=== PATIENT | male | born 1945 | race Asian ===

== ENCOUNTER 2017-11-06 15:16 | Emergency (ER) | payer SELFPAY ==
[~2017-11-06] VITALS: Ht 170.2 cm; Wt 79.5 kg
[2017-11-06] MEDS ORDERED: KETOROLAC TROMETHAMINE 30 MG/ML VIAL IM ONE (18:00)
[2017-11-06 19:52] VITALS: BP 173/85
== END 2017-11-06 20:22 | disposition home or self-care (01) ==
LOC: EMS 15:17
DX: M17.0 Bilateral primary osteoarthritis of knee (principal); M71.21 Synovial cyst of popliteal space [Baker], right knee
CPT/HCPCS: 73562 ×2; 93970; 96372; 99284; J1885

== ENCOUNTER 2018-03-01 11:54 | Emergency (ER) | payer MEDICAID, OTHER ==
[~2018-03-01] VITALS: Ht 170.2 cm; Wt 72.7 kg
[2018-03-01] MEDS ORDERED: ATOR10TA84 PO (12:10)
[2018-03-01 13:16] VITALS: BP 182/99
== END 2018-03-01 13:35 | disposition home or self-care (01) ==
LOC: EMS 11:55
DX: M77.9 Enthesopathy, unspecified (principal); I10 Essential (primary) hypertension; E78.00 Pure hypercholesterolemia, unspecified

== ENCOUNTER 2018-07-22 08:03 | Inpatient (IN) | payer OTHER ==
[2018-07-15 14:16] LABS: BASOPHILS % (AUTO) 0.5 % (0.0-2.0); EOSINOPHILS % (AUTO) 4.8 % (1.0-6.0); HEMATOCRIT 44.6 % (41-53); LYMPHOCYTES # (AUTO) 1.5 K/uL (1.0-4.8); LYMPHOCYTES % (AUTO) 20.4 % (22.0-44.0); MEAN CORPUSCULAR HGB CONC 33.6 G/dL (31.0-37.0); MEAN CORPUSCULAR VOLUME 92 fL (80-100); MONOCYTES # (AUTO) 0.5 K/uL (0.1-1.0); MONOCYTES % (AUTO) 6.7 % (2.0-9.0); NEUTROPHILS # (AUTO) 5.1 K/uL (1.8-7.7); NEUTROPHILS % (AUTO) 67.6 % (40.0-70.0); PLATELET COUNT (AUTO) 226 K/uL (150-450); RED BLOOD CELL COUNT(AUTO) 4.84 MIL/uL (4.50-5.90); RED CELL DISTRIBUTION WIDTH 12.8 % (11.5-14.5)
[2018-07-15 14:28] LABS: PROTHROMBIN TIME 10.2 SEC (9.4-11.6)
[2018-07-15 14:40] LABS: CALCIUM, TOTAL 9.8 mg/dL (8.8-10.5); CREATININE 1.5 mg/dL (0.60-1.30); POTASSIUM 4.8 mmol/L (3.5-5.1)
[2018-07-15 14:46] LABS: ALBUMIN 4.2 g/dL (3.4-5.0); BILIRUBIN,TOTAL 1.5 mg/dL (0.1-1.0); TOTAL PROTEIN, SERUM 7.7 g/dL (6.4-8.2)
[~2018-07-22] VITALS: Ht 170.2 cm; Wt 90.4 kg
[~2018-07-22 08:03] MED LIST: ACETAMINOPHEN 1000 MG/ISO-OSM 100 ML IV ONE; AMLO-511 PO; ATOR40TA28 PO; BUPIVACAINE LIPOSOME/PF 1.3%-13.3MG/ML SUSPENSION 20 ML VIAL INJ ONE; CELE100 PO; LOSA50TA64 PO
[2018-07-22] MEDS ORDERED: SODIUM CHLORIDE 0.9% 1,000 ML IV ONE (08:15)
[2018-07-22] MEDS ORDERED: SODIUM CHLORIDE 0.9% 100 ML ONE (09:25)
[2018-07-22] MEDS ORDERED: SODIUM CHLORIDE 0.9% 10 ML ONE (09:25)
[2018-07-22] MEDS ORDERED: BACITRACIN 50,000 UNITS/VIAL ONE (09:26)
[2018-07-22] MEDS ORDERED: SODIUM CL IRRIG SOLN BAG 3,000 ML IRRIG ONE (09:26)
[2018-07-22] MEDS ORDERED: TRANEXAMIC ACID 1,000 MG in DEXTROSE 5%-WATER 50 ML IV ONE (09:45)
[2018-07-22] MEDS ORDERED: RINGERS SOLUTION,LACTATED 1,000 ML IV ONE ×2 (10:30→11:04)
[2018-07-22] MEDS ORDERED: ZOLPIDEM TARTRATE 10 MG TABLET PO PRN (12:15)
[2018-07-22] MEDS ORDERED: BENZOCAINE/MENTHOL LOZENGE PO PRN (12:15)
[2018-07-22] MEDS ORDERED: BACITRACIN 28.4 GM OINTMENT TP PRN (12:15)
[2018-07-22] MEDS ORDERED: MAG HYDROX/AL HYDROX/SIMETH 30 ML SUSP UDCUP PO PRN (12:15)
[2018-07-22] MEDS ORDERED: BISACODYL 10 MG RECTAL RECTAL SUPPOSITORY PR PRN (12:15)
[2018-07-22] MEDS ORDERED: DiphenhydrAMINE HCL 50 MG/ML VIAL IVP PRN (12:15)
[2018-07-22] MEDS ORDERED: ONDANSETRON HCL 4 MG/2 ML VIAL IVP PRN ×3 (12:15→22:15)
[2018-07-22] MEDS ORDERED: FentaNYL CITRATE-PF 100 MCG/2 ML VIAL IVP PRN (13:00)
[2018-07-22] MEDS ORDERED: MEPERIDINE-PF 25 MG/ML VIAL IVP PRN (13:00)
[2018-07-22] MEDS ORDERED: HYDROmorphone 2 MG/ML SYRINGE IVP PRN ×2 (13:00)
[2018-07-22] MEDS ORDERED: CYCLOBENZAPRINE HCL 10 MG TABLET PO PRN (13:00)
[2018-07-22] MEDS ORDERED: ZOLPIDEM TARTRATE 5 MG TABLET PO PRN ×2 (13:00→22:15)
[2018-07-22 13:39] VITALS: BP 134/72
[2018-07-22] MEDS: DEXTROSE 5%-LACTATED RINGERS 1,000 ML IV SCH (14:33)
[2018-07-22 16:03] VITALS: BP 131/77
[2018-07-22] MEDS: ACETAMINOPHEN 1000 MG/ISO-OSM 100 ML IV SCH ×2 (17:00→23:23)
[2018-07-22 20:04] VITALS: BP 118/78
[2018-07-22] MEDS: FAMOTIDINE 20 MG TABLET PO SCH (20:15)
[2018-07-22] MEDS: DOCUSATE SODIUM 100 MG CAPSULE PO SCH (20:15)
[2018-07-22] MEDS: CeFAZolin 1 GM/DEXTROSE 50 ML IV SCH (20:15)
[2018-07-22] MEDS: OxyCODONE HCL 5 MG IR TABLET PO PRN (20:15)
[2018-07-22] MEDS ORDERED: ACETAMINOPHEN 325 MG TABLET PO PRN (22:15)
[2018-07-22 23:47] VITALS: BP 123/72
[2018-07-23] MEDS: CeFAZolin 1 GM/DEXTROSE 50 ML IV SCH (03:16)
[2018-07-23] MEDS: DEXTROSE 5%-LACTATED RINGERS 1,000 ML IV SCH ×2 (04:53→20:00)
[2018-07-23] MEDS: ACETAMINOPHEN 1000 MG/ISO-OSM 100 ML IV SCH ×2 (04:54→11:22)
[2018-07-23 05:14] VITALS: BP 139/67
[2018-07-23] MEDS ORDERED: MIDAZOLAM HCL 2 MG/2 ML VIAL IVP ONE (05:58)
[2018-07-23] MEDS ORDERED: KETAMINE HCL 50 MG/ML 10 ML VIAL IVP ONE (05:58)
[2018-07-23] MEDS ORDERED: FentaNYL CITRATE-PF 100 MCG/2 ML VIAL IVP ONE (05:58)
[2018-07-23] MEDS ORDERED: EPHEDrine SULFATE 50 MG/ML VIAL IM ONE (06:15)
[2018-07-23] MEDS ORDERED: PROPOFOL 1% 20 ML VIAL IVP ONE (06:15)
[2018-07-23] MEDS ORDERED: DEXAMETHASONE SOD PHOS 4 MG/ML VIAL IVP ONE (06:15)
[2018-07-23] MEDS ORDERED: GLYCOPYRROLATE 0.2 MG/ML VIAL IM ONE (06:15)
[2018-07-23] MEDS ORDERED: ROCURONIUM BROMIDE 10 MG/ML 5 ML VIAL IVP ONE (06:15)
[2018-07-23] MEDS ORDERED: ONDANSETRON HCL 4 MG/2 ML VIAL IVP ONE (06:15)
[2018-07-23] MEDS ORDERED: LIDOCAINE/PF 2% 5 ML VIAL IM ONE (06:15)
[2018-07-23] MEDS: OXYGEN THERAPY IH SCH ×2 (08:00→09:01)
[2018-07-23 08:54] VITALS: BP 112/64
[2018-07-23] MEDS: DOCUSATE SODIUM 100 MG CAPSULE PO SCH ×2 (08:55→20:12)
[2018-07-23] MEDS: PANTOPRAZOLE SODIUM 40 MG/VIAL IVP SCH (08:55)
[2018-07-23] MEDS: OxyCODONE HCL 5 MG IR TABLET PO PRN (08:56)
[2018-07-23] MEDS: FAMOTIDINE 20 MG TABLET PO SCH ×2 (08:56→20:12)
[2018-07-23] MEDS: AmLODIPine BESYLATE 5 MG TABLET PO SCH (08:56)
[2018-07-23] MEDS: ATORVASTATIN CALCIUM 40 MG TABLET PO SCH (08:56)
[2018-07-23 10:54] VITALS: BP 133/72
[2018-07-23] MEDS: LOSARTAN POTASSIUM 50 MG TABLET PO SCH (10:54)
[2018-07-23] MEDS ORDERED: RIVAROXABAN 10 MG TABLET PO SCH (11:00)
[2018-07-23 11:11] VITALS: BP 115/59
[2018-07-23 15:58] VITALS: BP 112/70
[2018-07-23] MEDS: RIVAROXABAN 10 MG TABLET PO SCH (17:32)
[2018-07-23 20:00] VITALS: BP 136/79
[2018-07-24 00:06] VITALS: BP 127/84
[2018-07-24 04:00] VITALS: BP 139/70
[2018-07-24] MEDS: OxyCODONE HCL/ACETAMINOPHEN 10-325 MG TABLET PO PRN ×2 (05:50→10:11)
[2018-07-24 07:21] VITALS: BP 135/69
[2018-07-24] MEDS: OXYGEN THERAPY IH SCH ×2 (08:00→20:00)
[2018-07-24] MEDS: ATORVASTATIN CALCIUM 40 MG TABLET PO SCH (08:31)
[2018-07-24] MEDS: LOSARTAN POTASSIUM 50 MG TABLET PO SCH (08:31)
[2018-07-24] MEDS: FAMOTIDINE 20 MG TABLET PO SCH ×2 (08:31→20:20)
[2018-07-24] MEDS: PANTOPRAZOLE SODIUM 40 MG/VIAL IVP SCH (08:31)
[2018-07-24] MEDS: DOCUSATE SODIUM 100 MG CAPSULE PO SCH ×2 (08:31→20:20)
[2018-07-24] MEDS: AmLODIPine BESYLATE 5 MG TABLET PO SCH (08:31)
[2018-07-24 11:03] LABS: BASOPHILS % (AUTO) 0.5 % (0.0-2.0); EOSINOPHILS % (AUTO) 0.4 % (1.0-6.0); HEMOGLOBIN 11.2 g/dL (13.5-17.5); LYMPHOCYTES # (AUTO) 1.4 K/uL (1.0-4.8); LYMPHOCYTES % (AUTO) 12.6 % (22.0-44.0); MEAN CORPUSCULAR HEMOGLOBIN 31.1 pg (26.0-34.0); MEAN CORPUSCULAR HGB CONC 33.8 G/dL (31.0-37.0); MEAN CORPUSCULAR VOLUME 92 fL (80-100); MONOCYTES # (AUTO) 1.2 K/uL (0.1-1.0); MONOCYTES % (AUTO) 11.5 % (2.0-9.0); PLATELET COUNT (AUTO) 165 K/uL (150-450); RED BLOOD CELL COUNT(AUTO) 3.59 MIL/uL (4.50-5.90); RED CELL DISTRIBUTION WIDTH 12.7 % (11.5-14.5)
[2018-07-24 11:31] VITALS: BP 132/70
[2018-07-24 15:30] VITALS: BP 106/68
[2018-07-24] MEDS: RIVAROXABAN 10 MG TABLET PO SCH (17:52)
[2018-07-24 17:54] LABS: CREATININE 1.57 mg/dL (0.60-1.30); POTASSIUM 3.9 mmol/L (3.5-5.1)
[2018-07-24 17:59] LABS: ALBUMIN 2.8 g/dL (3.4-5.0); BILIRUBIN,TOTAL 1.3 mg/dL (0.1-1.0); TOTAL PROTEIN, SERUM 6.1 g/dL (6.4-8.2)
[2018-07-24 18:17] LABS: APPEARANCE,URINE CLEAR (CLEAR); BILIRUBIN,URINE NEGATIVE (NEGATIVE); GLUCOSE, URINE (UA) NEGATIVE (NEGATIVE); KETONES,URINE NEGATIVE (NEGATIVE); LEUKOCYTE ESTERASE ,URINE NEGATIVE (NEGATIVE); NITRATE,URINE NEGATIVE (NEGATIVE); OCCULT BLOOD,URINE NEGATIVE (NEGATIVE); PH,URINE 5.5 (5.0-8.0); PROTEIN,URINE NEGATIVE (NEGATIVE); UROBILINOGEN,URINE 0.2 mg/dL (<=1.0)
[2018-07-24 20:04] VITALS: BP 126/72
[2018-07-25 00:01] VITALS: BP 121/72
[2018-07-25 04:03] VITALS: BP 132/65
[2018-07-25 07:30] VITALS: BP 119/61
[2018-07-25] MEDS: DOCUSATE SODIUM 100 MG CAPSULE PO SCH (08:17)
[2018-07-25] MEDS: AmLODIPine BESYLATE 5 MG TABLET PO SCH (08:17)
[2018-07-25] MEDS: LOSARTAN POTASSIUM 50 MG TABLET PO SCH (08:17)
[2018-07-25] MEDS: FAMOTIDINE 20 MG TABLET PO SCH (08:17)
[2018-07-25] MEDS: ATORVASTATIN CALCIUM 40 MG TABLET PO SCH (08:17)
[2018-07-25] MEDS: PANTOPRAZOLE SODIUM 40 MG/VIAL IVP SCH (08:17)
[2018-07-25 11:26] VITALS: BP 128/61
[2018-07-25 15:44] VITALS: BP 126/60
[2018-07-25] MEDS ORDERED: RIVA10 PO (17:12)
[2018-07-25] MEDS: RIVAROXABAN 10 MG TABLET PO SCH (17:57)
== END 2018-07-25 18:10 | disposition home or self-care (01) | DRG 302 ==
LOC: 5N 08:03 → 4E 12:29
PROVIDERS: ADMIT Orthopaedic Surgery; ATTEND Orthopaedic Surgery
PROC: 0SRC0J9 Replacement of Right Knee Joint with Synthetic Substitute, Cemented, Open Approach (ICD-10-PCS; principal; 2018-07-22 12:30)
DX: M17.11 Unilateral primary osteoarthritis, right knee (principal); E44.0 Moderate protein-calorie malnutrition; D64.9 Anemia, unspecified; E78.00 Pure hypercholesterolemia, unspecified; I10 Essential (primary) hypertension; N40.0 Benign prostatic hyperplasia without lower urinary tract symptoms; E78.5 Hyperlipidemia, unspecified; Z79.899 Other long term (current) drug therapy; Z68.31 Body mass index [BMI] 31.0-31.9, adult
CPT/HCPCS: 87040; 87081; 88300; 93005; 97110; 97116; 97161; 97166; 97530; 97535; C9113; C9290; G0238; J0131; J0690; J1100; J2250; J2405; J2704; J3010; J3490; J7030; J7050; J7060; J7120

== ENCOUNTER 2019-02-16 20:00 | Inpatient (IN) | payer OTHER ==
[~2019-02-16] VITALS: Ht 170.2 cm; Wt 85.9 kg
[~2019-02-16 20:00] MED LIST changes: -ACETAMINOPHEN 1000 MG/ISO-OSM 100 ML IV ONE; -AMLO-511 PO; +AMLO5TAB9 PO; -BUPIVACAINE LIPOSOME/PF 1.3%-13.3MG/ML SUSPENSION 20 ML VIAL INJ ONE; +RIVA10 PO
[2019-02-16 22:01] LABS: BASOPHILS % (AUTO) 0.5 % (0.0-2.0); EOSINOPHILS % (AUTO) 1.7 % (1.0-6.0); HEMATOCRIT 41.6 % (41-53); HEMOGLOBIN 13.9 g/dL (13.5-17.5); LYMPHOCYTES # (AUTO) 1.3 K/uL (1.0-4.8); LYMPHOCYTES % (AUTO) 17.1 % (22.0-44.0); MEAN CORPUSCULAR HEMOGLOBIN 30.5 pg (26.0-34.0); MEAN CORPUSCULAR HGB CONC 33.4 G/dL (31.0-37.0); MEAN CORPUSCULAR VOLUME 91 fL (80-100); MONOCYTES # (AUTO) 0.8 K/uL (0.1-1.0); MONOCYTES % (AUTO) 10.3 % (2.0-9.0); NEUTROPHILS # (AUTO) 5.4 K/uL (1.8-7.7); NEUTROPHILS % (AUTO) 70.4 % (40.0-70.0); PLATELET COUNT (AUTO) 202 K/uL (150-450); RED BLOOD CELL COUNT(AUTO) 4.55 MIL/uL (4.50-5.90); RED CELL DISTRIBUTION WIDTH 13.4 % (11.5-14.5)
[2019-02-16 22:17] LABS: CREATININE 1.55 mg/dL (0.60-1.30); POTASSIUM 3.7 mmol/L (3.5-5.1)
[2019-02-16 22:23] LABS: ALBUMIN 3.9 g/dL (3.4-5.0); BILIRUBIN,TOTAL 1.6 mg/dL (0.1-1.0); TOTAL PROTEIN, SERUM 7.6 g/dL (6.4-8.2)
[2019-02-16 22:27] LABS: LACTIC ACID 1.5 mmol/L (0.4-2.0)
[2019-02-16 22:48] LABS: URIC ACID 6.3 mg/dL (2.6-7.2)
[2019-02-16] MEDS ORDERED: BISACODYL 10 MG RECTAL RECTAL SUPPOSITORY PR PRN (23:45)
[2019-02-16] MEDS ORDERED: MAGNESIUM HYDROXIDE SUSPENSION 30 ML UDCUP PO PRN (23:45)
[2019-02-16] MEDS ORDERED: ZOLPIDEM TARTRATE 5 MG TABLET PO PRN (23:45)
[2019-02-16] MEDS ORDERED: ACETAMINOPHEN 325 MG TABLET PO PRN (23:45)
[2019-02-16] MEDS ORDERED: MORPHINE SULFATE 2 MG/ML SYRINGE IVP PRN (23:45)
[2019-02-16] MEDS ORDERED: ONDANSETRON HCL 4 MG/2 ML VIAL IVP PRN (23:45)
[2019-02-17] MEDS ORDERED: HEPARIN SODIUM,PORCINE 5,000 UNITS/ML VIAL SQ SCH
[2019-02-17] MEDS: HYDROCODONE/ACETAMINOPHEN 5-325 MG TABLET PO PRN ×3 (02:36→19:42)
[2019-02-17 02:50] VITALS: BP 147/80
[2019-02-17] MEDS ORDERED: INFLUENZA VIRUS VACCINE QVS 2019-20 (3YR+)/PF 60 MCG/0.5 ML SYRINGE IM ONE (06:30)
[2019-02-17 07:30] VITALS: BP 128/66
[2019-02-17] MEDS: DOCUSATE SODIUM 100 MG CAPSULE PO SCH ×2 (08:16→20:58)
[2019-02-17] MEDS: AmLODIPine BESYLATE 5 MG TABLET PO SCH (08:16)
[2019-02-17] MEDS: ATORVASTATIN CALCIUM 40 MG TABLET PO SCH (08:16)
[2019-02-17] MEDS: LOSARTAN POTASSIUM 50 MG TABLET PO SCH (08:17)
[2019-02-17] MEDS: PANTOPRAZOLE SODIUM 40 MG DR TABLET PO SCH (08:17)
[2019-02-17 11:36] VITALS: BP 124/59
[2019-02-17] MEDS: PredniSONE 20 MG TABLET PO SCH ×2 (14:43→20:58)
[2019-02-17 15:09] VITALS: BP 125/58
[2019-02-17] MEDS ORDERED: RIVAROXABAN 10 MG TABLET PO SCH (17:30)
[2019-02-17 20:02] VITALS: BP 130/71
[2019-02-17 23:51] VITALS: BP 116/59
[2019-02-18] VITALS (7 sets, daily range): BP systolic 113–129; BP diastolic 58–73
[2019-02-18 06:38] LABS: BASOPHILS % (AUTO) 0.1 % (0.0-2.0); EOSINOPHILS % (AUTO) 0 % (1.0-6.0); HEMATOCRIT 39.5 % (41-53); HEMOGLOBIN 13.4 g/dL (13.5-17.5); LYMPHOCYTES # (AUTO) 0.6 K/uL (1.0-4.8); LYMPHOCYTES % (AUTO) 6.2 % (22.0-44.0); MEAN CORPUSCULAR HEMOGLOBIN 30.9 pg (26.0-34.0); MEAN CORPUSCULAR VOLUME 91 fL (80-100); MONOCYTES # (AUTO) 0.4 K/uL (0.1-1.0); MONOCYTES % (AUTO) 4.4 % (2.0-9.0); NEUTROPHILS # (AUTO) 8.5 K/uL (1.8-7.7); PLATELET COUNT (AUTO) 200 K/uL (150-450); RED BLOOD CELL COUNT(AUTO) 4.35 MIL/uL (4.50-5.90); RED CELL DISTRIBUTION WIDTH 13.2 % (11.5-14.5)
[2019-02-18 06:45] LABS: CREATININE 1.56 mg/dL (0.60-1.30); POTASSIUM 4.4 mmol/L (3.5-5.1)
[2019-02-18 06:51] LABS: NEUTROPHILS % (AUTO) 89.3 % (40.0-70.0)
[2019-02-18] MEDS: PredniSONE 20 MG TABLET PO SCH ×2 (08:01→20:54)
[2019-02-18] MEDS: PANTOPRAZOLE SODIUM 40 MG DR TABLET PO SCH (08:01)
[2019-02-18] MEDS: DOCUSATE SODIUM 100 MG CAPSULE PO SCH ×2 (08:01→20:54)
[2019-02-18] MEDS: ATORVASTATIN CALCIUM 40 MG TABLET PO SCH (08:01)
[2019-02-18] MEDS: LOSARTAN POTASSIUM 50 MG TABLET PO SCH (09:12)
[2019-02-18] MEDS: AmLODIPine BESYLATE 5 MG TABLET PO SCH (09:12)
[2019-02-18] MEDS: ASPIRIN 81 MG CHEWABLE TABLET PO SCH (15:58)
[2019-02-19 04:32] VITALS: BP 124/62
[2019-02-19 06:57] LABS: BASOPHILS % (AUTO) 0.1 % (0.0-2.0); EOSINOPHILS % (AUTO) 0.1 % (1.0-6.0); HEMATOCRIT 38.7 % (41-53); HEMOGLOBIN 13.3 g/dL (13.5-17.5); LYMPHOCYTES # (AUTO) 1.4 K/uL (1.0-4.8); LYMPHOCYTES % (AUTO) 12.7 % (22.0-44.0); MEAN CORPUSCULAR HEMOGLOBIN 31.3 pg (26.0-34.0); MEAN CORPUSCULAR HGB CONC 34.5 G/dL (31.0-37.0); MEAN CORPUSCULAR VOLUME 91 fL (80-100); MONOCYTES # (AUTO) 0.8 K/uL (0.1-1.0); MONOCYTES % (AUTO) 7.1 % (2.0-9.0); NEUTROPHILS # (AUTO) 8.6 K/uL (1.8-7.7); PLATELET COUNT (AUTO) 227 K/uL (150-450); RED BLOOD CELL COUNT(AUTO) 4.25 MIL/uL (4.50-5.90); RED CELL DISTRIBUTION WIDTH 13.4 % (11.5-14.5)
[2019-02-19 07:24] LABS: BILIRUBIN,TOTAL 0.7 mg/dL (0.1-1.0); CALCIUM, TOTAL 9.1 mg/dL (8.8-10.5); CREATININE 1.7 mg/dL (0.60-1.30); MAGNESIUM 2.1 mg/dL (1.80-2.40); POTASSIUM 3.7 mmol/L (3.5-5.1); TOTAL PROTEIN, SERUM 6.6 g/dL (6.4-8.2)
[2019-02-19] MEDS: DOCUSATE SODIUM 100 MG CAPSULE PO SCH (08:43)
[2019-02-19] MEDS: PredniSONE 20 MG TABLET PO SCH (08:44)
[2019-02-19] MEDS: LOSARTAN POTASSIUM 50 MG TABLET PO SCH (08:44)
[2019-02-19] MEDS: ASPIRIN 81 MG CHEWABLE TABLET PO SCH (08:45)
[2019-02-19] MEDS: PANTOPRAZOLE SODIUM 40 MG DR TABLET PO SCH (08:45)
[2019-02-19] MEDS: ATORVASTATIN CALCIUM 40 MG TABLET PO SCH (08:45)
[2019-02-19] MEDS: AmLODIPine BESYLATE 5 MG TABLET PO SCH (08:45)
[2019-02-19 08:49] VITALS: BP 137/67
[2019-02-19 11:46] VITALS: BP 148/67
[2019-02-19] MEDS ORDERED: PANT40TA25 PO (12:41)
[2019-02-19] MEDS ORDERED: METH4TAB PO (12:49)
== END 2019-02-19 13:25 | disposition home or self-care (01) | DRG 351 ==
LOC: EMS 20:01 → 5S 02-17 00:15
PROVIDERS: ADMIT Internal Medicine; ATTEND Internal Medicine
DX: M10.9 Gout, unspecified (principal); E78.00 Pure hypercholesterolemia, unspecified; E78.5 Hyperlipidemia, unspecified; I12.9 Hypertensive chronic kidney disease with stage 1 through stage 4 chronic kidney disease, or unspecified chronic kidney disease; I73.9 Peripheral vascular disease, unspecified; N18.9 Chronic kidney disease, unspecified; M71.21 Synovial cyst of popliteal space [Baker], right knee; Z96.651 Presence of right artificial knee joint; M25.471 Effusion, right ankle; Z23 Encounter for immunization; Z79.899 Other long term (current) drug therapy; Z83.3 Family history of diabetes mellitus
CPT/HCPCS: 83605; 83735; 84550; 87040; 90686; 93005; 93306; 93970; 97116; 97162; 97165; 97535; J1644

== ENCOUNTER 2020-09-28 00:47 | Emergency (ER) | payer OTHER ==
[~2020-09-28] VITALS: Ht 170.2 cm; Wt 86.4 kg
[~2020-09-28 00:47] MED LIST changes: +AMLO-257 PO; -AMLO5TAB9 PO; -CELE100 PO; +LOSA50TA37 PO; -LOSA50TA64 PO; +METH4TAB PO; +PANT-31 PO
[2020-09-28] MEDS ORDERED: ACET120S22 PR (00:56)
[2020-09-28] MEDS ORDERED: TRAM50TA4 PO (00:56)
[2020-09-28] MEDS ORDERED: LOSA25TA21 PO (00:56)
[2020-09-28] MEDS ORDERED: ALLO100T2 PO (00:56)
[2020-09-28 01:40] VITALS: BP 126/59
[2020-09-28] MEDS ORDERED: MORPHINE SULFATE 4 MG/ML SYRINGE IVP ONE (02:00)
[2020-09-28 02:09] LABS: BASOPHILS % (AUTO) 0.4 % (0.0-2.0); EOSINOPHILS % (AUTO) 5.5 % (1.0-6.0); HEMATOCRIT 30.4 % (41-53); HEMOGLOBIN 10.2 g/dL (13.5-17.5); LYMPHOCYTES # (AUTO) 1.5 K/uL (1.0-4.8); LYMPHOCYTES % (AUTO) 17.1 % (22.0-44.0); MEAN CORPUSCULAR HEMOGLOBIN 31.4 pg (26.0-34.0); MEAN CORPUSCULAR HGB CONC 33.7 G/dL (31.0-37.0); MEAN CORPUSCULAR VOLUME 93 fL (80-100); MONOCYTES # (AUTO) 0.7 K/uL (0.1-1.0); MONOCYTES % (AUTO) 8.4 % (2.0-9.0); NEUTROPHILS # (AUTO) 5.9 K/uL (1.8-7.7); NEUTROPHILS % (AUTO) 68.6 % (40.0-70.0); PLATELET COUNT (AUTO) 317 K/uL (150-450); RED BLOOD CELL COUNT(AUTO) 3.26 MIL/uL (4.50-5.90); RED CELL DISTRIBUTION WIDTH 13.2 % (11.5-14.5)
[2020-09-28 02:26] LABS: CALCIUM, TOTAL 9.2 mg/dL (8.8-10.5); CREATININE 2.06 mg/dL (0.60-1.30); POTASSIUM 4.4 mmol/L (3.5-5.1)
[2020-09-28 02:32] LABS: ALBUMIN 2.8 g/dL (3.4-5.0); BILIRUBIN,TOTAL 1.2 mg/dL (0.1-1.0); TOTAL PROTEIN, SERUM 6.7 g/dL (6.4-8.2)
== END 2020-09-28 03:38 | disposition home or self-care (01) ==
LOC: EMS 00:49
DX: R60.0 Localized edema (principal); E78.00 Pure hypercholesterolemia, unspecified
CPT/HCPCS: 36415; 73503; 73590; 80053; 85025; 93971; 96374; 99285; J2270